=== PATIENT | female | born 1990 | race Caucasian/White ===

== ENCOUNTER 2019-01-23 20:04 | Emergency (ER) | payer MEDICAID ==
[~2019-01-23] VITALS: Ht 167.6 cm; Wt 54.4 kg
[2019-01-23 20:11] VITALS: BP_SYST 130
[2019-01-23 20:44] LABS: BLOOD, URINE 3+ (NEGATIVE); CLARITY/URINE CLOUDY (CLEAR); COLOR,URINE YELLOW (YELLOW); GLUCOSE,URINE NEGATIVE (NEGATIVE); KETONES,URINE TRACE (NEGATIVE); LEUKOCYTE ESTERASE ,URINE 2+ (NEGATIVE); NITRITE, URINE NEGATIVE (NEGATIVE); PH,URINE 5.5 (5.0-8.0); PROTEIN URINE 2+ (NEGATIVE)
[2019-01-23 20:46] LABS: BASOPHILS # (AUTO) 0.1 K/uL (0.0-0.2); BASOPHILS % (AUTO) 0.6 % (0.0-2.0); EOSINOPHILS % (AUTO) 0.2 % (0.0-4.0); HEMATOCRIT 35.3 % (36-48); HEMOGLOBIN 11.7 g/dL (12.0-16.0); LYMPHOCYTES # (AUTO) 3.2 K/uL (1.0-5.5); LYMPHOCYTES % (AUTO) 20.1 % (20.5-51.5); MEAN CORPUSCULAR HEMOGLOBIN 26 pg (27-31); MEAN CORPUSCULAR HGB CONC 33 % (32-36); MEAN CORPUSCULAR VOLUME 79 fL (79.0-98.0); MONOCYTES # (AUTO) 0.9 K/uL (0.0-1.0); MONOCYTES % (AUTO) 5.4 % (1.7-9.3); NEUTROPHILS # (AUTO) 11.8 K/uL (1.8-7.7); NEUTROPHILS % (AUTO) 73.7 % (40.0-70.0); PLATELET COUNT (AUTO) 420 K/uL (130-430); RED BLOOD CELL COUNT(AUTO) 4.45 MIL/uL (4.2-6.2); RED CELL DISTRIBUTION WIDTH 17.3 % (9.0-15.0)
[2019-01-23 20:49] LABS: BILIRUBIN,URINE 1+ (NEGATIVE)
[2019-01-23 20:59] LABS: CREATININE 0.84 mg/dL (0.55-1.30); POTASSIUM 3.4 mmol/L (3.5-5.1)
[2019-01-23 21:02] LABS: BACTERIA,URINE MODERATE /HPF (None Seen); MUCUS,URINE None Seen /LPF (None Seen); WBC,URINE >100 /HPF (0-3)
[2019-01-23 21:05] LABS: ALBUMIN 4.3 g/dL (3.4-4.8); TOTAL BILIRUBIN 0.6 mg/dL (0.0-1.0)
[2019-01-23 21:08] LABS: METHAMPHETAMINES SCREEN,URINE POSITIVE (NEG <=500); OPIATE, URINE POSITIVE (NEG <=100); URINE AMPHETAMINE POSITIVE (NEG <=500)
[2019-01-23 21:09] LABS: BARBITURATE, URINE NEGATIVE (NEG <=200); BENZODIAZEPINE, URINE NEGATIVE (NEG <=150); CANNABINOID, URINE NEGATIVE (NEG <=50); COCAINE, URINE NEGATIVE (NEG <=150); PHENCYCLIDINE SCREEN,URINE NEGATIVE (NEG <=25); UR TRICYCLIC ANTIDEPRESSANTS NEGATIVE (NEG <=300); URINE METHADONE NEGATIVE (NEG <=200); URINE OXYCODONE SCREEN NEGATIVE (NEG <=100); URINE PROPOXYPHENE SCREEN NEGATIVE (NEG <=300)
--- NOTE | 2019-01-23 21:49 | NUR ---
Patient to ER bed 05 to gown for evaluation. Side rails up.
--- NOTE | 2019-01-23 21:50 | NUR ---
Patient AOx4, presents to ED via wc for complaint of left abdominal pain 8/10 x1 day. Patient reports meth use x2 days ago and since then has noted "black stuff coming out" with urination. Patient states she feels a burning senstation to generalized body.
--- NOTE | 2019-01-23 22:12 | NUR ---
ER MD [place] at bedside for medical evaluation.
[2019-01-23] MEDS ORDERED: NACL 0.9% 1,000 ML IV ONE (22:30)
[2019-01-23] MEDS ORDERED: cefTRIAXone 1 GM IVPB PREMIX 50 ML IV ONE (22:30)
[2019-01-23] MEDS ORDERED: MORPHINE 4 MG/ML INJ. SYRINGE IVP ONE (22:30)
[2019-01-23] MEDS ORDERED: ONDANSETRON HCL 4 MG/2 ML VIAL IVP ONE (22:30)
[2019-01-23] MEDS ORDERED: KETAMINE 30 MG/3 ML SYRINGE IVP ONE (23:00)
--- NOTE | 2019-01-23 23:40 | NUR ---
# 20 gauge angiocath placed to left wrist. Use of asceptic technique. Opsite placed over site. Blood return noted. Flushed with 10 cc of normal saline. No evidence of infiltration noted. Patient tolerated well.
--- NOTE | 2019-01-24 00:10 | NUR ---
No adverse reactions noted after medication administration. Will continue to monitor.
[2019-01-24 00:57] VITALS: BP_SYST 124
--- NOTE | 2019-01-24 00:57 | NUR ---
Patient given written and verbal discharge instructions and verbalizes understanding. ER MD discussed with patient the results and treatment provided. Patient in stable condition. ID arm band removed. IV catheter removed intact and dressing applied, no active bleeding. Rx of Macrobid given. Patient educated on pain management and to follow up with PMD. Pain Scale 2/10 tolerable to patient. Opportunity for questions provided and answered. Medication side effect fact sheet provided.
== END 2019-01-24 00:57 | disposition home or self-care (01) ==
LOC: SED 20:04
DX: N30.90 Cystitis, unspecified without hematuria (principal); R10.12 Left upper quadrant pain; F19.10 Other psychoactive substance abuse, uncomplicated; Z88.6 Allergy status to analgesic agent
CPT/HCPCS: 36415; 74176; 80053; 80307; 81000; 81025; 83605; 84484; 84703; 85025; 87040; 87086; 87186; 93005; 96365; 96375; 99284; J0696; J2405; J7030